=== PATIENT | female | born 1965 | race Caucasian/White ===

== ENCOUNTER 2021-09-08 12:51 | Outpatient (RCR) | payer OTHER | END 2021-10-07 | disposition home or self-care (01) | LOC: PT | DX: M89.8X1 Other specified disorders of bone, shoulder (principal) ==

== ENCOUNTER 2021-10-11 08:00 | Outpatient (RCR) | payer OTHER | END 2021-11-06 | disposition still patient (30) | LOC: PT | DX: M89.8X1 Other specified disorders of bone, shoulder (principal) ==